=== PATIENT | male | born 1995 | race Caucasian/White ===

== ENCOUNTER 2023-04-03 08:07 | Emergency (ER) | payer SELFPAY ==
[2023-04-03 08:40] VITALS: BP 145/99; PULSE 86; RESP 16; TEMP 36.8; O2SAT 100; BMI 27.2
[2023-04-03 11:46] VITALS: BP 133/87; PULSE 95; RESP 16; O2SAT 99
[2023-04-03 12:18] LABS: IDNOW Serial# 08D9AD1C; Strep A Nucleic Acid Negative (Negative)
--- NOTE | 2023-04-03 12:26 | ED.GENADULT ---
HPI - General Adult General Chief complaint: General Medical Stated complaint: flu symptons Time Seen by Provider: 04/03/23 12:16 Source: patient Mode of arrival: ambulatory Limitations: no limitations History of Present Illness HPI narrative: 27-year-old male presents with headache, head/chest congestion, and cough with yellow sputum for the past 2 weeks. He also reports intermittent right sided abdominal discomfort with nausea ongoing for 2-3 months ( this is not new per patient) however not having pain today. He reports pressure behind his ears and eyes. He denies fevers, chills, vomiting, and diarrhea. No vision changes and gait/coordination abnormalities. No dysuria or hematuria. His brother is sick at home with the same symptoms. Related Data Previous Rx's Medication Instructions Recorded albuterol sulfate 90 mcg/actuation 2 inh inhalation Q4-6H PRN 04/03/23 breath activated powder inhaler shortness of breath or wheezing #1 ea azithromycin 250 mg tablet See Rx Instructions PO .COMPLEX #6 04/03/23 tabs prednisone 50 mg tablet 50 mg PO DAILY 5 days #5 tabs 04/03/23 Allergies Allergy/AdvReac Type Severity Reaction Status Date / Time Penicillins Allergy Rash Verified 04/03/23 08:39 Review of Systems Review of Systems: Constitutional : No Weight loss, No Fever, No Chills, + Fatigue, No Malaise ENT/Mouth : No sore throat, No Rhinorrhea. +Congestion and post-nasal drip. +Ear popping and pressure bilaterally. Eyes: No Eye Pain, No Swelling, No Redness. +eye pressure Cardiovascular : No Chest Pain, No SOB, No Dyspnea on Exertion, No Orthopnea, No Edema, No Palpitations Respiratory : No Cough, No Sputum, No Wheezing Gastrointestinal : No Nausea, No Vomiting, No Diarrhea, No Constipation, +intermittent abdominal Pain, No Hematochezia, No Melena Genitourinary : No Dysuria, No Urinary Frequency, No Hematuria, Musculoskeletal : No joint pain, No Myalgias, No Joint Swelling Skin : No Skin Lesions, No rash Neuro : No Weakness, No Numbness, No Dizziness, + Headache Psych : No Anxiety/Panic, No Depression Heme/Lymph: No Bruising, No Bleeding,No Lymphadenopathy Endocrine : No Polyuria, No Polydipsia All other systems reviewed and are negative [facility] Past Medical History Attestation statement: The following information was validated with the patient. Source: old records reviewed and nursing notes reviewed Social History Social History Smoked in Last 30 Days: No Use of substances other than those prescribed or required for medical reasons: No Advance Directives: No Advance Directives Information Provided: No Physical Exam ED Vital Signs: Vital Signs - 24 hr 04/03/23 08:40 04/03/23 11:46 Temperature 98.3 F Pulse Rate 86 95 Respiratory Rate 16 16 Blood Pressure 145/99 H 133/87 Pulse Oximetry 100 99 Oxygen Delivery Method Room Air Room Air BMI result Body Mass Index 27.2 VSS Appearance: Alert.? Oriented X3.? No acute distress.? Head: Normocephalic, atraumatic, no step-offs or deformities Eyes: Pupils equal, round and reactive to light.? ENT: Pharynx normal.??External ears normal, TM normal and EAC's normal on right. Unable to visualize TM on left due to significant cerumen build-up. No pain with manipulation of external ears bilaterally. No mastoid tenderness. Neck: Normal inspection.? Neck supple.? CVS: Normal heart rate and rhythm.? Pulses normal.? Respiratory: No respiratory distress.? Breath sounds normal.? Abdomen: Normoactive bowel sounds in all 4 quadrants. Soft and nontender.?No rebound tenderness. Negative McBurney's point, Rosving's, and Umaña's. Skin: Skin warm and dry.? Normal skin color.? Normal skin turgor.? Extremities: No lower extremity edema.? No calf ttp. 5/5 strength to bilateral upper and lower extremities Back: No midline tenderness, no C-spine tenderness, full range of motion, no CVA tenderness bilaterally Neuro: Oriented X 3.? No motor deficit.? No sensory deficit. CN 2-12 intact Course Reevaluation(s) Reevaluation #1: Patient positive for RSV. Again on re-evaluation no abdominal tenderness to palpation. I did explain to him if his abdominal pain changes he should return immediately for evaluation. I do not suspect acute abdomen or surgical abdomen. Will discharge with a Z-Duane due to length of symptoms to cover for possible sinusitis versus bronchitis, will give albuterol, prednisone. Educated patient on diagnosis and treatment plan, answered all question, patient verbalizes understanding. At this time patient will be discharged home, advised to return with new or worsening symptoms. Educated on worrisome signs and symptoms and when to return. At this time I feel comfortable discharge home. Time: 12:47 Medical Decision Making Medical Decision Making [facility] Narrative: 33 year old male presents w/ URI symptoms X 2 weeks PE benign. Likely viral illness, flu/covid/rsv vs sinusitis (most likely). No signs of meningitis, encephalits, ich, stroke, posterior stroke. Unlikely PNA, PE, respiratory distress. Unlikely appendicitis, pancreatitis, diverticulitis, colitis, acute abdomen, small bowel obstruction, large bowel obstruction. Abdominal pain likely IBS versus viral illness. Plan- viral testing Differential Diagnosis Differential Diagnoses: The differential diagnosis associated with the presentation includes Likely viral illness, flu/covid/rsv vs sinusitis (most likely). No signs of meningitis, encephalits, ich, stroke, posterior stroke. Unlikely PNA, PE, respiratory distress. Unlikely appendicitis, pancreatitis, diverticulitis, colitis, acute abdomen, small bowel obstruction, large bowel obstruction. Abdominal pain likely IBS versus viral illness. Admission/Observation Consideration of admission/observation: Escalation of care including admission/observation considered unlikely Lab Data [facility] Lab Attestation statement: I reviewed the patient's lab results. Labs: Lab Results 04/03/23 Range/Units 11:52 Influenza Type A (PCR) NEGATIVE (Negative) Influenza Type B (PCR) NEGATIVE (Negative) RSV RNA Qual (PCR) POSITIVE A (Negative) SARS-CoV-2 RNA (RT-PCR) NEGATIVE (Negative) S. pyogenes GrpA BRIDGETT Negative (Negative) Tests considered The following testing was considered but not selected: Lungs are clear no indication for chest imaging at this time. No abdominal tenderness to palpation no indication for CT of abdomen and pelvis. Prescription Management I considered prescription management with: Antibiotic Discharge Plan Discharge Clinical Impression: Respiratory syncytial virus (RSV), Abdominal discomfort Patient Disposition: Home, Self-Care Instructions: Respiratory Syncytial Virus (ED) Additional Instructions: Take your medications as prescribed. If you were prescribed antibiotics today, it is important that you take your medication to their entirety, do not skip any doses, do not finish them early. Follow-up with your primary care provider this week. Return to the emergency department with new or worsening symptoms. Such as fevers, chills, chest pain, shortness of breath, nausea, vomiting, dizziness, headache, vision changes, lethargy In case of emergency call 911 Prescriptions: New prednisone 50 mg tablet 50 mg PO DAILY 5 Days Qty: 5 0RF albuterol sulfate 90 mcg/actuation aerosol powdr breath activated 2 inh inhalation Q4-6H PRN (Reason: shortness of breath or wheezing) Qty: 1 0RF azithromycin 250 mg tablet See Rx Instructions .ROUTE .COMPLEX Qty: 6 0RF Rx Instructions: For 250 mg dose pack: take 500 mg today (day 1), then 250 mg for 4 days (days 2-5) Referrals: Physician,None [Primary Care Provider] - 2 days Stand Alone Forms: Work/School Release Interventions: ED Discharge Assessment Last Done: 04/03/23 12:47
[2023-04-03 12:37] LABS: Influenza A PCR NEGATIVE (Negative); Influenza B PCR NEGATIVE (Negative); Resp Syncy Virus RNA Qual PCR POSITIVE (Negative); SARS COV2 PCR INHOUSE NEGATIVE (Negative)
== END 2023-04-03 12:52 | disposition home or self-care (01) ==
PROVIDERS: Physician Assistant Medical; Emergency Provider Emergency Medicine
DX: R51.9 Headache, unspecified (principal); R09.81 Nasal congestion; R05.9 Cough, unspecified; R11.2 Nausea with vomiting, unspecified; R10.9 Unspecified abdominal pain; Z79.899 Other long term (current) drug therapy; Z20.822 Contact with and (suspected) exposure to COVID-19; Z20.828 Contact with and (suspected) exposure to other viral communicable diseases
CPT/HCPCS: 0241U; 87651; 99283; 99284